=== PATIENT | female | born 1985 | race Caucasian/White ===

== ENCOUNTER → 2016-11-02 10:34 | Outpatient (CLI) | payer BC | END | disposition home or self-care (01) | LOC: D.MRI 11-01 11:00 | DX: M25.562 Pain in left knee (principal) ==

== ENCOUNTER → 2019-01-20 12:23 | Outpatient (CLI) | payer OTHER | END | disposition home or self-care (01) | LOC: D.MRI 12:23 | PROVIDERS: ATTEND Nurse Practitioner Family | DX: M22.42 Chondromalacia patellae, left knee (principal) ==

== ENCOUNTER 2019-01-30 08:37 | Day surgery (SDC) | payer OTHER ==
[~2019-01-30] VITALS: Ht 157.5 cm; Wt 79.8 kg
[~2019-01-30 08:37] MED LIST: AMBIEN10 MG; APAP; BUTALB; CAFF; CYCLOBENZAPRINE10 MG PO; IBUPROFEN800 MG PO; PROZAC40 MG PO; [UNRECOGNIZED DRUG - OTHER]; [UNRECOGNIZED DRUG - OTHER]
[2019-01-30 09:10] LABS: HEMATOCRIT 35.4 % (36.0-48.0); HEMOGLOBIN 11.9 g/dL (12-16); MCH 28.8 pg (26.0-34.0); MCHC 33.6 g/dL (31.0-37.0); MCV 85.7 fL (80.0-100.0); MEAN PLATELET VOLUME 10.1 fL (7.4-10.4); RBC 4.13 10x6/uL (4.00-5.40); RDW 13.1 % (11.5-14.5); WBC 7.5 10x3/uL (4.8-10.8)
[2019-01-30 09:33] VITALS: BP 127/78; Ht 157.5 cm; Wt 79.8 kg
[2019-01-30 09:36] LABS: HCG URINE NEGATIVE (NEGATIVE)
[2019-01-30] MEDS ORDERED: PERCOCET 5-3251 TAB PO (13:32)
--- NOTE | 2019-01-30 15:40 | NUR ---
PATIENT AMBULATES TO BATHROOM WITH CRUTCHES, WITH STAND-BY ASSIST. DENIES UNSTEADINESS OR DIZZINESS. DRESSING IN PERSONAL CLOTHING. RIGHT HAND PIV DC'D WITH TIP INTACT. DISCHARGE INSTRUCTIONS REVIEWED WITH PATIENT AND SPOUSE. THIS NURSE HAS CALLED [employer] IN THE AREA AND THEY DON'T HAVE CRUTCHES IN PATIENT'S SIZE AND DON'T TAKE HER INSURANCE. PATIENT STATES THAT SHE THINKS SHE CAN BORROW SOME OR "WILL GO TO Do It In Person AND PICK SOME UP." [id number] DISCHARGED HOME VIA WHEELCHAIR TO PRIVATE VEHICLE WITH SPOUSE
--- NOTE | 2019-02-02 08:20 | OP ---
PATIENT NAME: BOB DAVIS MEDICAL RECORD: [id number] :87 LOCATION:[facility] ADMISSION DATE: SURGEON: KEVIN LYON DO DATE OF OPERATION: 01/30/2019 PROCEDURE PERFORMED: Left knee arthroscopy with abrasion chondroplasty of the patella and microfracture. PREOPERATIVE DIAGNOSIS: Chondromalacia of the patella, left knee. POSTOPERATIVE DIAGNOSIS: Chondromalacia of the patella, left knee. INDICATIONS: Ms. Davis is a 33-year-old female who has had patellar problems for quite some time. She had a lateral release in the past, this has given her a lot of pain and she is tired of dealing with it, wanted something done. MRI was done showing chondromalacia of the patella. I informed her that we could clean it up so to speak, the microfracture and new cartilage should grow there, but the progression of that would be, she probably would have continued knee pain. She was okay with that and aware of the risk of infection, bleeding, damage to nerves and vessels, need for further surgery and signed a consent. SURGEON: Kevin Lyon DO DESCRIPTION OF PROCEDURE: The patient was taken to the operative suite, laid in supine position, given general anesthetic and LMA was placed. The left lower extremity was then prepped and draped in sterile fashion and a timeout was performed, everyone was in agreement with correct side, site, patient and procedure. The incision then began on the lateral aspect of the anterior knee established in the lateral portal. The trocar was then entered in the knee and the suprapatellar pouch. No loose bodies were seen in that. Medial and lateral gutters were clean as well. Knee was then flexed down and the medial portal was established with an 18-gauge spinal needle and 11-blade scalpel. Probe was brought in the medial meniscus, did not have any tears and the ACL looked good and the lateral meniscus looked good as well. No tears seen in that. I then looked at the patella. On the lateral facet of the patella, there was a chondromalacia noted, fissuring and cracking and even some full thickness tearing of the cartilage. This was trimmed out with the shaver and then portals were switched to view from the medial portal and it turned out some more from the lateral portal and then the micro pick was brought in and a microfracture was done at the site. This was then removed and the suction was turned on. Water was turned off and all the excess fluid was removed from the knee and the instruments were withdrawn from the knee. The portal sites were then closed with a 4-0 Monocryl in an inverted interrupted fashion. Adaptic, 4 x 4s, ABD, Webril, Jaziel wrap and WOLF hose stockings were then placed on the leg. She was awakened and taken to recovery in stable condition. BLOOD LOSS: Minimal. COMPLICATIONS: None. TRANSINT:[id number] Voice Confirmation ID: [id number] DOCUMENT ID: [id number] OPERATIVE REPORT [id number] BOB DAVIS,KEVIN Tovar DO at 0820 CC: [id number] DICTATION DATE: 01/30/19 1338 ENTERTAINER OR VARIETY ARTIST: 01/30/19 1451 [facility] 01/30/19 [address] [place] [address]
== END 2019-01-30 15:54 | disposition home or self-care (01) ==
LOC: D.OPS 08:37 → D.PAN 11:45 → D.OPS 15:54
PROVIDERS: Anesthesiology; ATTEND Orthopaedic Surgery
DX: M22.42 Chondromalacia patellae, left knee (principal); Z01.812 Encounter for preprocedural laboratory examination

== ENCOUNTER 2020-01-04 07:45 | Day surgery (SDC) | payer OTHER ==
[2020-01-01 11:29] LABS: BASOPHILS 0.1 % (0-2); EOSINOPHILS 2.3 % (0-7); HEMATOCRIT 35.9 % (36.0-48.0); HEMOGLOBIN 11.6 g/dL (12-16); IMMATURE GRANULOCYTES 0.4 % (0-5); LYMPHOCYTES 37.1 % (15-50); MCH 27.4 pg (26.0-34.0); MCHC 32.3 g/dL (31.0-37.0); MCV 84.9 fL (80.0-100.0); MEAN PLATELET VOLUME 9.2 fL (7.4-10.4); MONOCYTES 7.4 % (2-11); NEUTROPHILS 52.7 % (40-80); PLATELET COUNT 310 10x3/uL (130-400); RBC 4.23 10x6/uL (4.00-5.40); RDW 14.8 % (11.5-14.5); WBC 7.3 10x3/uL (4.8-10.8)
[~2020-01-04] VITALS: Ht 157.5 cm; Wt 90.7 kg
--- NOTE | ~2020-01-04 | OP ---
PATIENT NAME: BOB DAVIS MEDICAL RECORD: [id number] :87 LOCATION:[facility] ADMISSION DATE: SURGEON: RODRI THOMASON MD DATE OF OPERATION: 01/04/2020 PREOPERATIVE DIAGNOSIS: Undesired fertility. POSTOPERATIVE DIAGNOSIS: Undesired fertility. PROCEDURE: Bilateral laparoscopic salpingectomy. SURGEON: Rodri Thomason MD ANESTHESIOLOGIST: Dr. Mireles. ANESTHESIA: General. FINDINGS: Unremarkable tubes, uterus and ovaries bilaterally. SPECIMENS REMOVED: Tubes. SPECIMEN DISPOSITION: Pathology. ESTIMATED BLOOD LOSS: Minimal. FLUIDS: 400 cc of lactated Ringer's. URINE OUTPUT: Quantity sufficient void prior to this procedure. COMPLICATIONS: None. DRAINS: None. INDICATIONS: The patient is a 34-year-old multiparous female with undesired fertility. The patient understands risks, benefits and limitations. The patient also understands risk of ectopic gestation, which can be life threatening if not treated properly. All alternatives were given to the patient and she wishes to proceed. DESCRIPTION OF PROCEDURE: After informed consent was assured, the patient was taken to the operating room where anesthetic was obtained. The patient was now prepped and draped in the usual sterile fashion. Incision was made at the umbilicus to accommodate a 5-mm trocar, which was inserted without difficulty and pneumoperitoneum developed. The patient was placed in Trendelenburg position and accessory ports were now placed in the midline and right lower quadrant. The midline lower quadrant port was an 8 mm port, right lower quadrant port was 5 mm. Using a grasper from the midline, the right tube was elevated and using a Thunderbeat coagulation cutter, the tube was removed from its attachments to the adnexa with serial compression, coagulation, and separation. After the tube was removed from the pelvis and abdomen, attention was directed to the left tube. The left tube was elevated from the midline and from the right lower quadrant. A Thunderbeat coagulation cutter was now used to remove the tube from its attachments to the adnexa beginning at the cornual region and completing at the ovary. This tube was removed from the abdomen. All surgical sites were inspected and found to be hemostatic. Sponge, lap, and OPERATIVE REPORT [id number] BOB DAVIS needle counts correct times 2. The patient's pneumoperitoneum was released and accessory trocars were removed. The primary trocar was now removed and all sites were closed with a subcuticular stitch. Dermabond applied. Sponge, lap, and needle counts correct times 2. TRANSINT:[id number] Voice Confirmation ID: [id number] DOCUMENT ID: [id number] RODRI THOMASON MD CC: [id number] DICTATION DATE: 01/04/20925 PHYSICAL SECURITY MANAGER: 01/04/201948 [facility] 01/04/20 [address] [id number] [place] [address] [id number]
[~2020-01-04 07:45] MED LIST changes: +BUTALB-APAP-CA1 EACH PO; +PERCOCET 5-3251 TAB PO
[2020-01-04 08:24] LABS: HCG URINE NEGATIVE (NEGATIVE)
[2020-01-04 08:35] VITALS: BP 101/67; Ht 157.5 cm; Wt 90.7 kg
--- NOTE | 2020-01-04 10:43 | NUR ---
1025 PATIENT C/O EYES ITCHING AND ITCHING ALL OVER HER BODY. DR ANNE NOTIFIED. ORDERS FOR VISTARIL RECEIVED. 1040 VISTARIL 25 MG RECEIVED FROM PHARMACY, GIVEN IM RVL
--- NOTE | 2020-01-04 11:44 | NUR ---
PT C/O ITCHING. CALLED DR. THOMASON AND HE ORDERED VISTARIL 50 MG IM. WILL ADMINISTER PER ORDER.
--- NOTE | 2020-01-04 12:03 | NUR ---
PT STATES HAVING PAIN OF 8/10 IN ABD. ADMINISTERED PERCOCET 1 TAB PER ORDER. WILL CONTINUE TO MONITOR.
--- NOTE | 2020-01-04 12:39 | NUR ---
PT LEFT UNIT VIA WC AT 1239
== END 2020-01-04 12:39 | disposition home or self-care (01) ==
LOC: D.OPS 07:45 → D.PAN 09:30 → D.OPS 09:45
PROVIDERS: ATTEND Obstetrics & Gynecology
DX: Z30.2 Encounter for sterilization (principal)

== ENCOUNTER 2020-01-06 00:12 | Emergency (ER) | payer OTHER ==
[~2020-01-06] VITALS: Ht 157.5 cm; Wt 81.8 kg
== END 2020-01-06 01:06 | disposition home or self-care (01) ==
LOC: D.ER 00:12
DX: Z98.890 Other specified postprocedural states (principal); R52 Pain, unspecified

== ENCOUNTER 2020-12-23 23:01 | Emergency (ER) | payer OTHER ==
[~2020-12-23] VITALS: Ht 157.5 cm; Wt 89.8 kg
[2020-12-23 23:32] VITALS: BP 108/80; Ht 157.5 cm; Wt 89.8 kg
[2020-12-24] MEDS ORDERED: PROAIR HFA8.5 G1 INH (00:59)
== END 2020-12-24 01:08 | disposition home or self-care (01) ==
LOC: D.ER 23:01
DX: Z20.822 Contact with and (suspected) exposure to COVID-19 (principal); R06.02 Shortness of breath; R07.89 Other chest pain